=== PATIENT | female | born 1950 | race African-American/Black ===

== ENCOUNTER 2016-12-24 10:24 | Emergency (ER) | payer OTHER, MEDICARE, MEDICAID ==
--- NOTE | 2016-12-24 11:08 | ER Document Report ---
ED Fall - General Chief Complaint: Fall Stated Complaint: FALL,HEAD PAIN Information source: Patient Notes: A pleasant 66-year-old female who fell out of her wheelchair on a bus. She states the wheelchair was "not secured correctly". She states she hit the right side of her head. She denies any loss of consciousness. She denies pain to any other location including denying any pain to the neck, chest, ribs, back , abdomen, or extremities. TRAVEL OUTSIDE OF THE [place] IN LAST 30 DAYS: No - HPI Occurred: Just prior to arrival Where: Other - See above Context: Fell from sitting - See above Associated symptoms: denies: Lost consciousness, Dazed/confused Location of injury/pain: Other - See above Quality of pain: Achy Severity: Mild Pain Level: 1 Prehospital interventions: No: C-collar, Backboard - Related data Allergies/Adverse Reactions: Penicillins Allergy (Mild, Verified 07/02/16 20:42) Past Medical History - General Information source: Patient - Social History Smoking Status: Unknown if Ever Smoked Cigarette use (# per day): No Chew tobacco use (# tins/day): No Frequency of alcohol use: None Drug Abuse: None Family History: Arthritis, CAD, CVA, DM, Hyperlipidemia, Hypertension, Malignancy - Past Medical History Cardiac Medical History: Reports: Hx Hypercholesterolemia, Hx Hypertension Renal/ Medical History: Reports: Hx Renal Insufficiency Malignancy Medical History: Reports: Hx Brain Cancer Musculoskeltal Medical History: Reports Hx Arthritis, Reports Hx Gout Past Surgical History: Reports: Hx Appendectomy, Hx Neurologic Surgery - brain tumor removed - Immunizations Hx Diphtheria, Pertussis, Tetanus Vaccination: Yes Review of Systems - Review of Systems Constitutional: denies: Fever EENT: denies: Eye discharge, Nose discharge Cardiovascular: denies: Chest pain, Palpitations Respiratory: denies: Short of breath Gastrointestinal: denies: Vomiting Genitourinary: denies: Dysuria Musculoskeletal: denies: Leg swelling Skin: Other - no hives. denies: Rash Neurological/Psychological: Other - no slurred speech -: Yes All other systems reviewed and negative Physical Exam - Vital signs Vitals: Temp Pulse BP Pulse Ox 97.5 F 55 L 145/85 H 100 12/24/16 10:36 12/24/16 10:36 12/24/16 10:36 12/24/16 10:36 Notes: Reviewed vital signs and nursing note as charted by RN. CONSTITUTIONAL: Patient is a AAO 4.. Well-appearing; well-nourished HEAD: Normocephalic; atraumatic EYES: PERRL NECK: Supple without meningismus; non-tender CARD: Regular rate and rhythm; no murmurs, no clicks, no rubs, no gallops; symmetric distal pulses RESP: Normal chest excursion without splinting or tachypnea; breath sounds clear and equal bilaterally; no wheezes, no rhonchi, no rales ABD/GI: Normal bowel sounds; non-distended; soft, non-tender BACK: The back appears normal and is non-tender to palpation, there is no CVA tenderness EXT: Normal ROM in all joints; non-tender to palpation; no cyanosis, no effusions, no edema SKIN: Normal color for age and race; warm; dry; good turgor; capillary refill < 2 seconds; no acute lesions noted NEURO: CN II through XII are intact. Moves all extremities equally; Motor and sensory function intact PSYCH: The patient's mood and manner are appropriate. Grooming and personal hygiene are appropriate. Course - Re-evaluation Re-evalutation: 12/24/16 11:08 Given this very polite and oriented female with a fall from the seated position hitting the right side of her head, I will obtain a CT scan of the head. I do not believe other imaging or laboratory work is necessary at this time. 12/24/16 12:28 CT head as recorded. Still no focal neurological deficits. Patient will be discharged home with strict return precautions. - Vital Signs Vital signs: Temp Pulse Resp BP Pulse Ox 97.5 F 55 L 145/85 H 100 12/24/16 10:36 12/24/16 10:36 12/24/16 10:36 12/24/16 10:36 Discharge - Discharge Clinical Impression: Accidental fall Qualifiers: Encounter type: initial encounter Qualified Code(s): W19.XXXA - Unspecified fall, initial encounter Closed head injury Qualifiers: Encounter type: initial encounter Qualified Code(s): S09.90XA - Unspecified injury of head, initial encounter Condition: Good Disposition: HOME, SELF-CARE Additional Instructions: Come back immediately with any change in mental status, headache, weakness or numbness, fevers or vomiting, or any other acute problems.
[2016-12-24 13:00] VITALS: BP 158/73
== END 2016-12-24 12:53 | disposition home or self-care (01) ==
LOC: ER 10:24
DX: S09.90XA Unspecified injury of head, initial encounter (principal); R51 Headache; W05.0XXA Fall from non-moving wheelchair, initial encounter; Y92.811 Bus as the place of occurrence of the external cause; I10 Essential (primary) hypertension; E78.00 Pure hypercholesterolemia, unspecified; Z85.841 Personal history of malignant neoplasm of brain; Z88.0 Allergy status to penicillin
CPT/HCPCS: 70450; 99284

== ENCOUNTER → 2017-04-30 | Outpatient (CLI) | payer MEDICARE, MEDICAID ==
[2017-04-30 10:03] LABS: ABSOLUTE EOSINOPHILS # (AUTO) 0.3 10^3/uL (0.0-0.6); ABSOLUTE LYMPHOCYTES (AUTO) 2.7 10^3/uL (0.5-4.7); ABSOLUTE MONOCYTES (AUTO) 0.3 10^3/uL (0.1-1.4); ABSOLUTE NEUT (AUTO) 3.1 10^3/uL (1.7-8.2); BASOPHILS % (AUTO) 0.6 % (0-2); EOSINOPHILS % (AUTO) 4.1 % (0-6); HEMATOCRIT 22.7 % (36.0-47.0); HGB HCT DIFFERENCE 0.1; LYMPHOCYTES % (AUTO) 42.4 % (13-45); MEAN CORPUSCULAR HEMOGLOBIN 28.7 pg (27.0-33.4); MEAN CORPUSCULAR HGB CONC 33.3 g/dL (32.0-36.0); MEAN CORPUSCULAR VOLUME 86 fl (80-97); MONOCYTES % (AUTO) 4.4 % (3-13); RED BLOOD COUNT 2.65 10^6/uL (3.72-5.28); RED CELL DISTRIBUTION WIDTH 14.5 % (11.5-14.0); SEGMENTED NEUTROPHILS % (AUTO) 48.5 % (42-78); WHITE BLOOD COUNT 6.3 10^3/uL (4.0-10.5)
[2017-04-30 10:10] LABS: HEMOGLOBIN 7.6 g/dL (12.0-15.5)
== END ==
LOC: OD 09:18
PROVIDERS: ATTEND Internal Medicine
DX: D64.9 Anemia, unspecified (principal)
CPT/HCPCS: 36415; 82607; 82728; 83540; 83550; 85025

== ENCOUNTER → 2017-11-03 | Outpatient (CLI) | payer MEDICARE, MEDICAID ==
--- NOTE | 2017-11-03 10:50 | RADIOLOGY REPORT (SQ) ---
EXAM DESCRIPTION: CT ABD/PELVIS NO ORAL OR IV COMPLETED DATE/TIME: 11/03/2017 8:57 am REASON FOR STUDY: R10.32 LEFT LOWER QUADRANT PAIN R10.32 LEFT LOWER QUADRANT PAIN COMPARISON: None. TECHNIQUE: CT scan of the abdomen and pelvis performed without intravenous or oral contrast. Images reviewed with lung, soft tissue, and bone windows. Reconstructed coronal and sagittal MPR images revi ewed. All images stored on PACS. All CT scanners at this facility use dose modulation, iterative reconstruction, and/or weight based d osing when appropriate to reduce radiation dose to as low as reasonably achievable (ALARA). [facility]: Dose Right [facility]: CareDose [facility]: Dose Right [facility]: Teradose 4D [facility]: Smart [employer] RADIATION DOSE: CT Rad equipment meets quality standard of care and radiation dose reduction techniq ues were employed. CTDIvol: 4.3 - 5.7 mGy. DLP: 266 mGy-cm.mGy. LIMITATIONS: None. FINDINGS: LOWER CHEST: No significant findings. No nodules or infiltrates. NON-CONTRASTED LIVER, SPLEEN, ADRENALS: Evaluation limited by lack of IV contrast. No identified sign ificant masses. PANCREAS: No masses. No peripancreatic inflammatory changes. GALLBLADDER: Multiple small calcified gallstones are identified. No inflammatory changes to suggest c holecystitis. RIGHT KIDNEY AND URETER: No suspicious masses. Assessment limited by lack of IV contrast. No signif icant calcifications. No hydronephrosis or hydroureter. LEFT KIDNEY AND URETER: No suspicious masses. Assessment limited by lack of IV contrast. No signifi cant calcifications. No hydronephrosis or hydroureter. AORTA AND RETROPERITONEUM: No aneurysm. No retroperitoneal masses or adenopathy. BOWEL AND PERITONEAL CAVITY: No obvious masses or inflammatory changes. No free fluid. APPENDIX: Status post appendectomy PELVIS, BLADDER, AND ABDOMINAL WALL:No abnormal masses. No free fluid. Bladder normal. BONES: No significant findings. OTHER: No other significant finding. IMPRESSION: Multiple small calcified gallstones are identified. No other significant intra-abdomina l or pelvic abnormalities were identified. Other findings as noted above COMMENT: Quality ID # [id number]: Final reports with documentation of one or more dose reduction techniques (e.g., Automated exposure control, adjustment of the mA and/or kV according to patient size, use of iterative reconstruction technique) TECHNICAL DOCUMENTATION: JOB ID: [id number] [employer]- All Rights Reserved Reading location - IP/workstation name: [email or web address]
== END ==
LOC: RAD 09:06
PROVIDERS: ATTEND Internal Medicine
DX: R10.32 Left lower quadrant pain (principal)
CPT/HCPCS: 74176

== ENCOUNTER → 2017-11-30 | Outpatient (CLI) | payer MEDICARE, MEDICAID ==
--- NOTE | 2017-11-30 09:21 | WOMENS IMAGING REPORT ---
EXAM DESCRIPTION: BONE DENSITY HIP/SPINE COMPLETED DATE/TIME: 11/30/2017 8:59 am REASON FOR STUDY: AGE-RELATED OSTEOPROSIS; M81.0 M81.0 AGE-RELATED OSTEOPOROSIS W/O CURRENT PATHOLO GIRIVERA FRA COMPARISON: 05/23/2015 TECHNIQUE: Dual-Energy X-ray Absorptiometry (DEXA) of the AP Spine and Hip. LIMITATIONS: None. FINDINGS: LUMBAR SPINE: The bone mineral density (BMD) measured from L1-L4 in the AP projection correlates with a T-score of -2.5, which is osteoporosis as defined by the World Health Organization. -1.6% change since prior st udy. HIP: The bone mineral density (BMD) measured in the left hip correlates with a T-score of -2.3 in the femo ral neck, which is osteopenia as defined by the World Health Organization. -6.1% change since prior study. IMPRESSION: 1. LUMBAR SPINE: OSTEOPOROSIS. 2. HIP: OSTEOPENIA. COMMENT: The World Health Organization defines low BMD as follows: T-score: Normal: Greater than -1.0 Osteopenia: Between -1.0 and -2.5 Osteoporosis: Less than -2.5 without fractures Established osteoporosis: Less than -2.5 with fractures In general, you may wish to consider: Diagnosis Treatment Follow-up DEXA Normal BMD Prevention 2-3 years Osteopenia Prevention/Therapy 1-2 years Osteoporosis Therapy Yearly TECHNICAL DOCUMENTATION: JOB ID: [id number] [employer]- All Rights Reserved Reading location - IP/workstation name: [email or web address]
== END ==
LOC: WI 08:50
PROVIDERS: ATTEND Internal Medicine
DX: M81.0 Age-related osteoporosis without current pathological fracture (principal)
CPT/HCPCS: 77080

== ENCOUNTER → 2018-03-19 | Outpatient (CLI) | payer MEDICARE, MEDICAID ==
--- NOTE | 2018-03-19 18:08 | WOMENS IMAGING REPORT ---
EXAM DESCRIPTION: 3D SCREENING MAMMO BILAT COMPLETED DATE/TIME: 03/19/2018 10:17 am REASON FOR STUDY: BILATERAL SCREENING MAMMO 3D/Z12.31 Z12.31 ENCNTR SCREEN MAMMOGRAM FOR MALIGNANT NEOPLASM OF CARL COMPARISON: 2014, 2012 TECHNIQUE: Standard craniocaudal and mediolateral oblique views of each breast recorded using digita l acquisition and breast tomosynthesis. LIMITATIONS: None. FINDINGS: No masses, calcifications or architectural distortion. No areas of suspicion. Read with the assistance of CAD. .[facility] - R2 Cenova Version 1.3 .[facility] - R2 Cenova Version 1.3 .[facility] - R2 Cenova Version 2.4 .[facility] [place] R2 Cenova Version 2.4 .[facility] - R2 Yarn Winder Version 9.2 IMPRESSION: NORMAL MAMMOGRAM. BIRADS 1. BREAST DENSITY: b. There are scattered areas of fibroglandular density. BIRAD: 1 NEGATIVE RECOMMENDATION: ROUTINE SCREENING Please continue yearly bilateral screening mammography/tomosynthesis in February 2019 COMMENT: The patient has been notified of the results by letter per SA requirements. Additional no tification policies are in place for contacting patient with suspicious or incomplete findings. Quality ID #[id number]: The [employer] recommends an annual screening mammogram for women aged 40 years or over. This facility utilizes a reminder system to ensure that all patients receive reminder letters, and/or direct phone calls for appointments. This includes reminders for routine scr eening mammograms, diagnostic mammograms, or other Breast Imaging Interventions when appropriate. Th is patient will be placed in the appropriate reminder system. The [employer] (ACR) has developed recommendations for screening MRI of the breast s in certain patient populations, to be used in conjunction with mammography. Breast MRI surveillanc e may be appropriate for women with more than 20% lifetime risk of developing breast cancer as deter mined by genetic testing, significant family history of the disease, or history of mantle radiation f or Hodgkins Disease. ACR Practice Guidelines 2008. DBT Technology DBT is a type of tomographic mammography. With conventional mammography, overlapping breast tissue ma y make lesions difficult to detect, even with good compression. DBT uses an x-ray tube that rotates a round the breast, taking images at different angles. These images are then combined to create thin sl ices of the breast that the radiologist can view as a 3D reconstruction. The [employer] unit can perform full-field digital mammograms (2D imaging); or DBT (3D imaging); or both, in a combination mode that quickly performs both the mammogram and the tomosynthesis scan while the breast is still compressed. PQRS 6045F: Fluoroscopic imaging is not utilized for breast tomosynthesis. TECHNICAL DOCUMENTATION: FINDING NUMBER: (1) ASSESSMENT: (1) JOB ID: [id number] [employer]- All Rights Reserved Reading location - IP/workstation name: [email or web address]
== END ==
LOC: WI 09:55
PROVIDERS: ATTEND Internal Medicine
DX: Z12.31 Encounter for screening mammogram for malignant neoplasm of breast (principal)
CPT/HCPCS: 77063; 77067

== ENCOUNTER 2019-04-15 13:46 | Inpatient (IN) | payer MEDICARE, MEDICAID ==
[2019-04-15] MEDS ORDERED: NORMAL SALINE 1000 ML 1,000 ML IV ONE ×2 (14:41→16:17)
[2019-04-15 15:16] LABS: ABSOLUTE BASOPHILS # (AUTO) 0.1 10^3/uL (0.0-0.2); ABSOLUTE EOSINOPHILS # (AUTO) 0.4 10^3/uL (0.0-0.6); ABSOLUTE MONOCYTES (AUTO) 0.8 10^3/uL (0.1-1.4); ABSOLUTE NEUT (AUTO) 3.9 10^3/uL (1.7-8.2); EOSINOPHILS % (AUTO) 5.7 % (0-6); HEMATOCRIT 33.6 % (36.0-47.0); HEMOGLOBIN 11.4 g/dL (12.0-15.5); LYMPHOCYTES % (AUTO) 28.2 % (13-45); MEAN CORPUSCULAR HEMOGLOBIN 28.1 pg (27.0-33.4); MEAN CORPUSCULAR HGB CONC 33.9 g/dL (32.0-36.0); MEAN CORPUSCULAR VOLUME 83 fl (80-97); MONOCYTES % (AUTO) 10.8 % (3-13); PLATELET COUNT 303 10^3/uL (150-450); RED BLOOD COUNT 4.05 10^6/uL (3.72-5.28); RED CELL DISTRIBUTION WIDTH 14.8 % (11.5-14.0); SEGMENTED NEUTROPHILS % (AUTO) 54.3 % (42-78); TOTAL CELLS COUNTED % (AUTO) 100 %; WHITE BLOOD COUNT 7.1 10^3/uL (4.0-10.5)
--- NOTE | 2019-04-15 15:28 | RADIOLOGY REPORT (SQ) ---
EXAM DESCRIPTION: KUB/ABDOMEN (SINGLE VIEW) COMPLETED DATE/TIME: 04/15/2019 3:17 pm REASON FOR STUDY: vomiting COMPARISON: None. NUMBER OF VIEWS: One view. TECHNIQUE: Supine radiographic image of the abdomen acquired. LIMITATIONS: None. FINDINGS: BOWEL GAS PATTERN: Normal bowel gas pattern. No dilated loops. CALCIFICATIONS: No suspicious calcifications. SOFT TISSUES: No gross mass or suggestion of organomegaly. HARDWARE: None in the abdomen. BONES: No acute fracture. No worrisome bone lesions. OTHER: No other significant finding. IMPRESSION: NO RADIOGRAPHIC EVIDENCE FOR ACUTE ABDOMINAL DISEASE. TECHNICAL DOCUMENTATION: JOB ID: [id number] [employer]- All Rights Reserved Reading location - IP/workstation name: [email or web address]
--- NOTE | 2019-04-15 15:29 | RADIOLOGY REPORT (SQ) ---
EXAM DESCRIPTION: CHEST SINGLE VIEW COMPLETED DATE/TIME: 04/15/2019 3:17 pm REASON FOR STUDY: hypotension COMPARISON: 10/13/2014 EXAM PARAMETERS: NUMBER OF VIEWS: One view. TECHNIQUE: Single frontal radiographic view of the chest acquired. RADIATION DOSE: NA LIMITATIONS: None. FINDINGS: LUNGS AND PLEURA: The lungs are hyperexpanded. There is no infiltrate, effusion, or mass. MEDIASTINUM AND HILAR STRUCTURES: No masses. Contour normal. HEART AND VASCULAR STRUCTURES: Heart normal in size. Normal vasculature. BONES: No acute findings. HARDWARE: None in the chest. OTHER: No other significant finding. IMPRESSION: Mild chronic lung changes with no acute cardiopulmonary findings. TECHNICAL DOCUMENTATION: JOB ID: [id number] [employer] All Rights Reserved Reading location - IP/workstation name: [email or web address]
[2019-04-15 15:36] LABS: ALBUMIN 4.6 g/dL (3.5-5.0); ALKALINE PHOSPHATASE 106 U/L (38-126); ANION GAP 16 (5-19); ASPARTATE AMINO TRANSFERASE 42 U/L (14-36); BILIRUBIN,DIRECT 0.4 mg/dL (0.0-0.4); BILIRUBIN,TOTAL 0.5 mg/dL (0.2-1.3); BLOOD UREA NITROGEN 35 mg/dL (7-20); CARBON DIOXIDE 20 mmol/L (22-30); CHLORIDE 101 mmol/L (98-107); CREATINE KINASE 426 U/L (30-135); GLUCOSE 97 mg/dL (75-110); POTASSIUM 4.1 mmol/L (3.6-5.0); TOTAL PROTEIN 8.7 g/dL (6.3-8.2)
[2019-04-15] MEDS ORDERED: DRONABINOL 2.5 MG CAPSULE PO ONE (15:39)
[2019-04-15 15:50] LABS: CREATINE KINASE MB 2.72 ng/mL (<4.55)
[2019-04-15 15:54] LABS: TROPONIN I 0.159 ng/mL
[2019-04-15] MEDS ORDERED: IPRATROPIUM/ALBUTEROL 0.5-2.5 MG/3 ML AMPUL NEB PRN (18:25)
[2019-04-15] MEDS ORDERED: ACETAMINOPHEN 325 MG TABLET PO PRN (18:25)
[2019-04-15 18:52] LABS: INTERNATIONAL RATION (INR) 1.07; PROTHROMBIN TIME 13.9 SEC (11.4-15.4)
[2019-04-15 18:53] LABS: PARTIAL THROMBOPLASTIN TIME 34.8 SEC (23.5-35.8)
--- NOTE | 2019-04-15 19:41 | RADIOLOGY REPORT (SQ) ---
EXAM DESCRIPTION: U/S RETROPERITON (RENAL/AORTA) COMPLETED DATE/TIME: 04/15/2019 6:57 pm REASON FOR STUDY: acute kidney failure COMPARISON: 07/25/2013 TECHNIQUE: Dynamic and static grayscale images acquired of the kidneys and bladder and recorded on P ACS. Additional selected color Doppler and spectral images recorded. LIMITATIONS: None. FINDINGS: RIGHT KIDNEY: Atrophic, 6.8 cm length. No solid or suspicious masses. No hydronephrosis. No calcifications. LEFT KIDNEY: 9.2 cm length. No solid or suspicious masses. No hydronephrosis. No calcifications. BLADDER: No masses identified. OTHER FINDINGS: No other significant finding. IMPRESSION: No hydronephrosis. TECHNICAL DOCUMENTATION: JOB ID: [id number] [place]-72 2010 [employer]- All Rights Reserved Reading location - IP/workstation name: [email or web address]
[2019-04-15 19:42] LABS: THYROID STIMULATING HORMONE < 0.01 uIU/mL (0.47-4.68)
[2019-04-15] MEDS: HEPARIN SOD (PORCINE) 5,000 UNIT/ML 1 ML VIAL SUBCUT SCH (20:45)
[2019-04-15 20:46] LABS: CREATINE KINASE MB 2.64 ng/mL (<4.55); TROPONIN I 0.112 ng/mL
[2019-04-15] MEDS: NORMAL SALINE 1000 ML 1,000 ML IV PRN (22:22)
[2019-04-16 03:08] LABS: CREATINE KINASE MB 2.71 ng/mL (<4.55); TROPONIN I 0.078 ng/mL
[2019-04-16] MEDS: HEPARIN SOD (PORCINE) 5,000 UNIT/ML 1 ML VIAL SUBCUT SCH ×3 (05:48→21:27)
[2019-04-16 06:59] LABS: APPEARANCE,URINE CLEAR; BILIRUBIN,URINE NEGATIVE (NEGATIVE); COLOR,URINE STRAW; GLUCOSE, URINE NEGATIVE (NEGATIVE); KETONES,URINE NEGATIVE (NEGATIVE); LEUKOCYTE ESTERASE,URINE NEGATIVE (NEGATIVE); NITRITE,URINE NEGATIVE (NEGATIVE); PROTEIN,URINE NEGATIVE (NEGATIVE); URINE SPECIFIC GRAVITY 1.004; UROBILINOGEN,URINE NEGATIVE mg/dL (<2.0)
[2019-04-16 07:13] LABS: URINE AMPHETAMINES SCREEN NEGATIVE; URINE BARBITURATES SCREEN NEGATIVE; URINE BENZODIAZEPINES SCREEN NEGATIVE; URINE COCAINE SCREEN NEGATIVE; URINE METHADONE SCREEN NEGATIVE; URINE PHENCYCLIDINE SCREEN NEGATIVE
[2019-04-16 07:20] LABS: URINE MARIJUANA (THC) SCREEN UNCONFIRMED POSITIVE
[2019-04-16 08:10] LABS: ABSOLUTE RETICS # 0.034 10^6/uL (0.028-0.122); MEAN CORPUSCULAR HEMOGLOBIN 27.9 pg (27.0-33.4); MEAN CORPUSCULAR VOLUME 82 fl (80-97); PLATELET COUNT 251 10^3/uL (150-450); RED BLOOD COUNT 3.17 10^6/uL (3.72-5.28); RED CELL DISTRIBUTION WIDTH 15.1 % (11.5-14.0); RETICULOCYTE COUNT (AUTO) 1.06 % (0.66-2.85)
[2019-04-16 08:17] LABS: ALBUMIN 3.5 g/dL (3.5-5.0); ALKALINE PHOSPHATASE 78 U/L (38-126); ANION GAP 10 (5-19); ASPARTATE AMINO TRANSFERASE 30 U/L (14-36); BILIRUBIN,DIRECT 0.3 mg/dL (0.0-0.4); BILIRUBIN,TOTAL 0.4 mg/dL (0.2-1.3); BLOOD UREA NITROGEN 30 mg/dL (7-20); CALCIUM 8.1 mg/dL (8.4-10.2); CARBON DIOXIDE 19 mmol/L (22-30); CHLORIDE 111 mmol/L (98-107); CHOLESTEROL 131.96 mg/dL (0-200); CREATINE KINASE 402 U/L (30-135); GLUCOSE 75 mg/dL (75-110); IRON(TIBC) 172.2 ug/dL (37-170); POTASSIUM 3.6 mmol/L (3.6-5.0); TOTAL PROTEIN 6.8 g/dL (6.3-8.2); TRIGLYCERIDES 133 mg/dL (<150)
[2019-04-16 08:19] LABS: HEMOGLOBIN 8.8 g/dL (12.0-15.5)
[2019-04-16 08:28] LABS: DIRECT LDL 87 mg/dL (<100)
[2019-04-16 08:29] LABS: CREATINE KINASE MB 2.74 ng/mL (<4.55); TROPONIN I 0.076 ng/mL
[2019-04-16 08:49] LABS: ABSOLUTE LYMPHOCYTES# (MANUAL) 2.3 10^3/uL (0.5-4.7); ABSOLUTE MONOCYTES # (MANUAL) 0.2 10^3/uL (0.1-1.4); BASOPHILS % (MANUAL) 0 % (0-2); EOSINOPHILS % (MANUAL) 8 % (0-6); LYMPHOCYTES % (MANUAL) 39 % (13-45); MONOCYTES % (MANUAL) 3 % (3-13); SEGMENTED NEUTROPHILS % (MAN) 50 % (42-78); TOTAL CELLS COUNTED 100
[2019-04-16 08:50] LABS: ANISOCYTOSIS SLIGHT; OVALOCYTES 1+; PLATELET COMMENT ADEQUATE; POIKILOCYTOSIS 1+
[2019-04-16 09:57] LABS: FOLATE 7.32 ng/mL (>2.76)
--- NOTE | 2019-04-16 10:33 | PDOC H&P ---
History of Present Illness Admission Date/PCP: 04/15/19 18:19 JUAN F MELVIN MD History of Present Illness: MARINA VELA is a 68 year old female, she was brought to the emergency room by her nephew for evaluation of generalized body weakness, decreased intake, dehydration. She has a history of underlying chronic kidney disease, stage III, she has anemia, she was evaluated in the office for the anemia the iron indices, B12, reticulocyte count came back normal, I felt she needed a bone marrow biopsy. I ordered bone marrow biopsy outpatient but this was not done by the interventional radiologist, this suggests that patient should be referred to a digital media planner. She was referred to the digital media planner, she went through another set of iron studies she was found to be iron deficient from their evaluation I did not demonstrate iron deficiency from the evaluation done in the office. She said she was given iron infusion, since she received iron infusion she became anorexic, she has no appetite and she has not been eating or drinking since Thursday of last week. The nephew was concerned she brought out of the ER for evaluation, the serum creatinine that was done in the ER was 4.68, her baseline creatinine is about 1.5.. Kidney ultrasound was done there was no hydronep hrosis it demonstrated atrophic right kidney measures 6.8 cm, the left kidney measures 9.2 cm there was no hydronephrosis no mass no suspicious lesions. She was also found to have elevated serum troponin but there is no EKG changes, the BNP was elevated, the worsening azotemia is most likely prerenal and not necessarily from worsening kidney function. There is also evidence of secondary hyperparathyroidism due to kidney disease. The anemia is probably anemia of chronic kidney disease and not necessarily iron deficiency anemia Past Medical History Cardiac Medical History: Reports: Hyperlipidema, Hypertension Pulmonary Medical History: Reports: Chronic Obstructive Pulmonary Disease (COPD) Endocrine Medical History: Reports: Other - Osteoporosis Renal/ Medical History: Reports: Chronic Kidney Disease Musculoskeltal Medical History: Reports: Arthritis, Gout Psychiatric Medical History: Reports: Depression Past Surgical History Past Surgical History: Reports: Appendectomy Social History Smoking Status: Current Every Day Smoker Cigarettes Packs Per Day: 0.2 Cigars Per Day: 0 Pipes Per Day: 0 Number of Years Smokin Last Time Smoked: 04/14/19 Frequency of Alcohol Use: None Hx Recreational Drug Use: No Drugs: None Hx Prescription Drug Abuse: No - Advance Directive Resuscitation Status: Full Code Family History Family History: Arthritis, CAD, CVA, DM, Hyperlipidemia, Hypertension, Malignancy Parental Family History Reviewed: Yes Children Family History Reviewed: Yes Sibling(s) Family History Reviewed.: Yes Medication/Allergy Home Medications: Aspirin [Aspirin 81 mg Chewable Tablet] 81 mg PO DAILY #30 03/24/13 Calcium Carb, Citrate/Vit D3 [Calcium + D3 ER Tablet] 1 tab PO BID 10/13/14 Losartan Potassium 100 mg PO DAILY 10/13/14 Levothyroxine Sodium [Synthroid 50 Mcg Tablet] 50 mcg PO DAILY 04/15/19 Allergies/Adverse Reactions: Penicillins Allergy (Mild, Verified 04/30/17 10:48) Review of Systems Constitutional: PRESENT: anorexia, fatigue Eyes: ABSENT: visual disturbances Ears: ABSENT: hearing changes Cardiovascular: ABSENT: chest pain, dyspnea on exertion, edema, orthropnea, palpitations Respiratory: ABSENT: cough, hemoptysis Gastrointestinal: ABSENT: abdominal pain, constipation, diarrhea, hematemesis, hematochezia, nausea, vomiting Genitourinary: ABSENT: dysuria, hematuria Musculoskeletal: ABSENT: joint swelling Integumentary: ABSENT: rash, wounds Neurological: ABSENT: abnormal gait, abnormal speech, confusion, dizziness, focal weakness, syncope Psychiatric: ABSENT: anxiety, depression, homidical ideation, suicidal ideation Endocrine: ABSENT: cold intolerance, heat intolerance, menstrual abnormalities, polydipsia, polyuria Hematologic/Lymphatic: ABSENT: easy bleeding, easy bruising, lymphadenopathy Physical Exam Vital Signs: Temp Pulse Resp BP Pulse Ox 98.2 F 63 14 127/59 H 100 04/16/19 07:23 04/16/19 07:23 04/16/19 07:23 04/16/19 07:23 04/16/19 07:23 Intake & Output 04/15/19 04/16/19 04/17/19 06:59 06:59 06:59 Intake Total 2300 Output Total 750 200 Balance 1550 -200 Weight 59.6 kg General appearance: PRESENT: no acute distress, well-developed, well-nourished Head exam: PRESENT: atraumatic, normocephalic Eye exam: PRESENT: conjunctiva pink, EOMI, PERRLA Ear exam: PRESENT: normal external ear exam Mouth exam: PRESENT: moist, tongue midline Neck exam: PRESENT: full ROM Respiratory exam: PRESENT: clear to auscultation sharon Cardiovascular exam: PRESENT: RRR, +S1, +S2 Vascular exam: PRESENT: normal capillary refill GI/Abdominal exam: PRESENT: normal bowel sounds, soft Rectal exam: PRESENT: deferred Neurological exam: PRESENT: alert, CN II-XII grossly intact Psychiatric exam: PRESENT: appropriate affect, normal mood Skin exam: PRESENT: dry, intact, warm Results Laboratory Results: 04/16/19 07:53 04/16/19 07:53 04/15/19 04/15/19 04/15/19 15:00 15:00 15:00 WBC 7.1 RBC 4.05 Hgb 11.4 L Hct 33.6 L MCV 83 MCH 28.1 MCHC 33.9 RDW 14.8 H Plt Count 303 Seg Neutrophils % 54.3 Lymphocytes % 28.2 Monocytes % 10.8 Eosinophils % 5.7 Basophils % 1.0 Absolute Neutrophils 3.9 Absolute Lymphocytes 2.0 Absolute Monocytes 0.8 Absolute Eosinophils 0.4 Absolute Basophils 0.1 Retic Count (auto) Absolute Retic Sodium 137.0 Potassium 4.1 Chloride 101 Carbon Dioxide 20 L Anion Gap 16 BUN 35 H Creatinine 4.68 H Est GFR ( Amer) 11 L Est GFR (Non-Af Amer) 9 L Glucose 97 Lactic Acid 1.5 Calcium 10.0 Magnesium Iron TIBC % Saturation Ferritin Total Bilirubin 0.5 AST 42 H Alkaline Phosphatase 106 Ammonia Total Protein 8.7 H Albumin 4.6 Triglycerides Cholesterol LDL Cholesterol Direct VLDL Cholesterol HDL Cholesterol Amylase Lipase Vitamin B12 Folate TSH Free T4 PTH Intact Urine Color Urine Appearance Urine pH Ur Specific [place] Urine Protein Urine Glucose (UA) Urine Ketones Urine Blood Urine Nitrite Ur Leukocyte Esterase Urine WBC (Auto) Urine RBC (Auto) 04/15/19 04/15/19 04/15/19 15:00 15:00 19:44 WBC RBC Hgb Hct MCV MCH MCHC RDW Plt Count Seg Neutrophils % Lymphocytes % Monocytes % Eosinophils % Basophils % Absolute Neutrophils Absolute Lymphocytes Absolute Monocytes Absolute Eosinophils Absolute Basophils Retic Count (auto) Absolute Retic Sodium Potassium Chloride Carbon Dioxide Anion Gap BUN Creatinine Est GFR ( Amer) Est GFR (Non-Af Amer) Glucose Lactic Acid Calcium Magnesium 2.4 H Iron TIBC % Saturation Ferritin Total Bilirubin AST Alkaline Phosphatase Ammonia 15.5 Total Protein Albumin Triglycerides Cholesterol LDL Cholesterol Direct VLDL Cholesterol HDL Cholesterol Amylase 156 H Lipase 342.5 H Vitamin B12 Folate TSH < 0.01 L Free T4 1.30 PTH Intact Urine Color Urine Appearance Urine pH Ur Specific [place] Urine Protein Urine Glucose (UA) Urine Ketones Urine Blood Urine Nitrite Ur Leukocyte Esterase Urine WBC (Auto) Urine RBC (Auto) 04/16/19 04/16/19 04/16/19 06:08 07:53 07:53 WBC 6.0 RBC 3.17 L Hgb 8.8 L D Hct 26.0 L MCV 82 MCH 27.9 MCHC 34.0 RDW 15.1 H Plt Count 251 Seg Neutrophils % Not Reportable Lymphocytes % Not Reportable Monocytes % Not Reportable Eosinophils % Not Reportable Basophils % Not Reportable Absolute Neutrophils Not Reportable Absolute Lymphocytes Not Reportable Absolute Monocytes Not Reportable Absolute Eosinophils Not Reportable Absolute Basophils Not Reportable Retic Count (auto) Absolute Retic Sodium 140.2 Potassium 3.6 Chloride 111 H Carbon Dioxide 19 L Anion Gap 10 BUN 30 H Creatinine 2.30 H Est GFR ( Amer) 25 L Est GFR (Non-Af Amer) 21 L Glucose 75 Lactic Acid Calcium 8.1 L Magnesium Iron TIBC % Saturation Ferritin Total Bilirubin 0.4 AST 30 Alkaline Phosphatase 78 Ammonia Total Protein 6.8 Albumin 3.5 Triglycerides 133 Cholesterol 131.96 LDL Cholesterol Direct 87 VLDL Cholesterol 27.0 HDL Cholesterol 25 L Amylase Lipase Vitamin B12 Folate TSH Free T4 PTH Intact Urine Color STRAW Urine Appearance CLEAR Urine pH 6.0 Ur Specific [place] 1.004 Urine Protein NEGATIVE Urine Glucose (UA) NEGATIVE Urine Ketones NEGATIVE Urine Blood MODERATE H Urine Nitrite NEGATIVE Ur Leukocyte Esterase NEGATIVE Urine WBC (Auto) 1 Urine RBC (Auto) 1 04/16/19 04/16/19 04/16/19 07:53 07:53 07:53 WBC RBC Hgb Hct MCV MCH MCHC RDW Plt Count Seg Neutrophils % Lymphocytes % Monocytes % Eosinophils % Basophils % Absolute Neutrophils Absolute Lymphocytes Absolute Monocytes Absolute Eosinophils Absolute Basophils Retic Count (auto) 1.06 Absolute Retic 0.034 Sodium Potassium Chloride Carbon Dioxide Anion Gap BUN Creatinine Est GFR ( Amer) Est GFR (Non-Af Amer) Glucose Lactic Acid Calcium Magnesium Iron 172.2 H TIBC 220 L % Saturation 78 Ferritin 1120.00 H Total Bilirubin AST Alkaline Phosphatase Ammonia Total Protein Albumin Triglycerides Cholesterol LDL Cholesterol Direct VLDL Cholesterol HDL Cholesterol Amylase Lipase Vitamin B12 370.0 Folate 7.32 TSH Free T4 PTH Intact 304.5 H Urine Color Urine Appearance Urine pH Ur Specific [place] Urine Protein Urine Glucose (UA) Urine Ketones Urine Blood Urine Nitrite Ur Leukocyte Esterase Urine WBC (Auto) Urine RBC (Auto) 04/15/19 04/15/19 04/15/19 15:00 15:00 15:00 Creatine Kinase 426 H CK-MB (CK-2) 2.72 Troponin I 0.159 NT-Pro-B Natriuret Pep 8120 H 04/15/19 04/15/19 04/16/19 20:05 20:05 02:17 Creatine Kinase 344 H 363 H CK-MB (CK-2) 2.64 Troponin I 0.112 NT-Pro-B Natriuret Pep 04/16/19 04/16/19 04/16/19 02:17 07:53 07:53 Creatine Kinase 402 H CK-MB (CK-2) 2.71 2.74 Troponin I 0.078 0.076 NT-Pro-B Natriuret Pep Impressions: Chest X-Ray 04/15/19 00:00 IMPRESSION: Mild chronic lung changes with no acute cardiopulmonary findings. Renal Ultrasound 04/15/19 00:00 IMPRESSION: No hydronephrosis. KUB X-Ray 04/15/19 14:41 IMPRESSION: NO RADIOGRAPHIC EVIDENCE FOR ACUTE ABDOMINAL DISEASE. Assessment & Plan - Diagnosis (1) LAURO (acute kidney injury) Is this a current diagnosis for this admission?: Yes Plan: She has acute kidney injury most likely prerenal, this is superimposed on a pre- existing kidney disease, the kidney ultrasound demonstrated atrophic right kidney. The patient is dehydrated, she has not been eating not drinking for the last week because she has no appetite which she attributed to the iron infusion that she received outpatient. (2) Secondary hyperparathyroidism (of renal origin) Is this a current diagnosis for this admission?: Yes Plan: , Check phosphorus ,start calcitriol (3) Weight loss Is this a current diagnosis for this admission?: Yes Plan: I am concerned about the weight loss especially with tobacco use, order CT scan of the abdomen and pelvis chest and head without contrast (4) Elevated troponin Is this a current diagnosis for this admission?: Yes Plan: This is probably related to the acute kidney injury not necessarily reflection of acute AR
--- NOTE | 2019-04-16 10:34 | EKG REPORT ---
SEVERITY:- BORDERLINE ECG - SINUS RHYTHM BORDERLINE PROLONGED QT INTERVAL : Confirmed by: Robert Sears 16-Apr-2019 10:33:56
--- NOTE | 2019-04-16 10:34 | EKG REPORT ---
SEVERITY:- ABNORMAL ECG - SINUS RHYTHM PROBABLE LEFT ATRIAL ABNORMALITY NONSPECIFIC T ABNORMALITIES, ANT-LAT LEADS BORDERLINE PROLONGED QT INTERVAL : Confirmed by: Robert Sears 16-Apr-2019 10:34:06
--- NOTE | 2019-04-16 10:42 | PDOC PROGRESS REPORT ---
Subjective Progress Note for:: 04/16/19 Subjective:: Patient was seen by the bedside, she feels somewhat better since admission, the serum creatinine is improved from 4 yesterday to 2 today suggesting a prerenal component. The hemoglobin was 11 yesterday is 8 today, the iron indices demonstrated elevated ferritin. She has anemia of chronic kidney disease. As I indicated I am concerned about the weight loss, she has not had colonoscopy. Reason For Visit: ACUTE KIDNEY INJURY, ELEVATED SERUM TROPONIN Physical Exam Vital Signs: Temp Pulse Resp BP Pulse Ox 98.2 F 63 14 127/59 H 100 04/16/19 07:23 04/16/19 07:23 04/16/19 07:23 04/16/19 07:23 04/16/19 07:23 Intake & Output 04/15/19 04/16/19 04/17/19 06:59 06:59 06:59 Intake Total 2300 Output Total 750 200 Balance 1550 -200 Weight 59.6 kg General appearance: PRESENT: no acute distress Eye exam: PRESENT: PERRLA Respiratory exam: PRESENT: clear to auscultation sharon Cardiovascular exam: PRESENT: +S1, +S2 GI/Abdominal exam: PRESENT: soft Neurological exam: PRESENT: alert Results Laboratory Results: 04/16/19 07:53 04/16/19 07:53 04/15/19 04/15/19 04/15/19 15:00 15:00 15:00 WBC 7.1 RBC 4.05 Hgb 11.4 L Hct 33.6 L MCV 83 MCH 28.1 MCHC 33.9 RDW 14.8 H Plt Count 303 Seg Neutrophils % 54.3 Lymphocytes % 28.2 Monocytes % 10.8 Eosinophils % 5.7 Basophils % 1.0 Absolute Neutrophils 3.9 Absolute Lymphocytes 2.0 Absolute Monocytes 0.8 Absolute Eosinophils 0.4 Absolute Basophils 0.1 Retic Count (auto) Absolute Retic Sodium 137.0 Potassium 4.1 Chloride 101 Carbon Dioxide 20 L Anion Gap 16 BUN 35 H Creatinine 4.68 H Est GFR ( Amer) 11 L Est GFR (Non-Af Amer) 9 L Glucose 97 Lactic Acid 1.5 Calcium 10.0 Magnesium Iron TIBC % Saturation Ferritin Total Bilirubin 0.5 AST 42 H Alkaline Phosphatase 106 Ammonia Total Protein 8.7 H Albumin 4.6 Triglycerides Cholesterol LDL Cholesterol Direct VLDL Cholesterol HDL Cholesterol Amylase Lipase Vitamin B12 Folate TSH Free T4 PTH Intact Urine Color Urine Appearance Urine pH Ur Specific [place] Urine Protein Urine Glucose (UA) Urine Ketones Urine Blood Urine Nitrite Ur Leukocyte Esterase Urine WBC (Auto) Urine RBC (Auto) 04/15/19 04/15/19 04/15/19 15:00 15:00 19:44 WBC RBC Hgb Hct MCV MCH MCHC RDW Plt Count Seg Neutrophils % Lymphocytes % Monocytes % Eosinophils % Basophils % Absolute Neutrophils Absolute Lymphocytes Absolute Monocytes Absolute Eosinophils Absolute Basophils Retic Count (auto) Absolute Retic Sodium Potassium Chloride Carbon Dioxide Anion Gap BUN Creatinine Est GFR ( Amer) Est GFR (Non-Af Amer) Glucose Lactic Acid Calcium Magnesium 2.4 H Iron TIBC % Saturation Ferritin Total Bilirubin AST Alkaline Phosphatase Ammonia 15.5 Total Protein Albumin Triglycerides Cholesterol LDL Cholesterol Direct VLDL Cholesterol HDL Cholesterol Amylase 156 H Lipase 342.5 H Vitamin B12 Folate TSH < 0.01 L Free T4 1.30 PTH Intact Urine Color Urine Appearance Urine pH Ur Specific [place] Urine Protein Urine Glucose (UA) Urine Ketones Urine Blood Urine Nitrite Ur Leukocyte Esterase Urine WBC (Auto) Urine RBC (Auto) 04/16/19 04/16/19 04/16/19 06:08 07:53 07:53 WBC 6.0 RBC 3.17 L Hgb 8.8 L D Hct 26.0 L MCV 82 MCH 27.9 MCHC 34.0 RDW 15.1 H Plt Count 251 Seg Neutrophils % Not Reportable Lymphocytes % Not Reportable Monocytes % Not Reportable Eosinophils % Not Reportable Basophils % Not Reportable Absolute Neutrophils Not Reportable Absolute Lymphocytes Not Reportable Absolute Monocytes Not Reportable Absolute Eosinophils Not Reportable Absolute Basophils Not Reportable Retic Count (auto) Absolute Retic Sodium 140.2 Potassium 3.6 Chloride 111 H Carbon Dioxide 19 L Anion Gap 10 BUN 30 H Creatinine 2.30 H Est GFR ( Amer) 25 L Est GFR (Non-Af Amer) 21 L Glucose 75 Lactic Acid Calcium 8.1 L Magnesium Iron TIBC % Saturation Ferritin Total Bilirubin 0.4 AST 30 Alkaline Phosphatase 78 Ammonia Total Protein 6.8 Albumin 3.5 Triglycerides 133 Cholesterol 131.96 LDL Cholesterol Direct 87 VLDL Cholesterol 27.0 HDL Cholesterol 25 L Amylase Lipase Vitamin B12 Folate TSH Free T4 PTH Intact Urine Color STRAW Urine Appearance CLEAR Urine pH 6.0 Ur Specific [place] 1.004 Urine Protein NEGATIVE Urine Glucose (UA) NEGATIVE Urine Ketones NEGATIVE Urine Blood MODERATE H Urine Nitrite NEGATIVE Ur Leukocyte Esterase NEGATIVE Urine WBC (Auto) 1 Urine RBC (Auto) 1 04/16/19 04/16/19 04/16/19 07:53 07:53 07:53 WBC RBC Hgb Hct MCV MCH MCHC RDW Plt Count Seg Neutrophils % Lymphocytes % Monocytes % Eosinophils % Basophils % Absolute Neutrophils Absolute Lymphocytes Absolute Monocytes Absolute Eosinophils Absolute Basophils Retic Count (auto) 1.06 Absolute Retic 0.034 Sodium Potassium Chloride Carbon Dioxide Anion Gap BUN Creatinine Est GFR ( Amer) Est GFR (Non-Af Amer) Glucose Lactic Acid Calcium Magnesium Iron 172.2 H TIBC 220 L % Saturation 78 Ferritin 1120.00 H Total Bilirubin AST Alkaline Phosphatase Ammonia Total Protein Albumin Triglycerides Cholesterol LDL Cholesterol Direct VLDL Cholesterol HDL Cholesterol Amylase Lipase Vitamin B12 370.0 Folate 7.32 TSH Free T4 PTH Intact 304.5 H Urine Color Urine Appearance Urine pH Ur Specific [place] Urine Protein Urine Glucose (UA) Urine Ketones Urine Blood Urine Nitrite Ur Leukocyte Esterase Urine WBC (Auto) Urine RBC (Auto) 04/15/19 04/15/19 04/15/19 15:00 15:00 15:00 Creatine Kinase 426 H CK-MB (CK-2) 2.72 Troponin I 0.159 NT-Pro-B Natriuret Pep 8120 H 04/15/19 04/15/19 04/16/19 20:05 20:05 02:17 Creatine Kinase 344 H 363 H CK-MB (CK-2) 2.64 Troponin I 0.112 NT-Pro-B Natriuret Pep 04/16/19 04/16/19 04/16/19 02:17 07:53 07:53 Creatine Kinase 402 H CK-MB (CK-2) 2.71 2.74 Troponin I 0.078 0.076 NT-Pro-B Natriuret Pep Impressions: Chest X-Ray 04/15/19 00:00 IMPRESSION: Mild chronic lung changes with no acute cardiopulmonary findings. Renal Ultrasound 04/15/19 00:00 IMPRESSION: No hydronephrosis. KUB X-Ray 04/15/19 14:41 IMPRESSION: NO RADIOGRAPHIC EVIDENCE FOR ACUTE ABDOMINAL DISEASE. Assessment & Plan - Diagnosis (1) LAURO (acute kidney injury) Is this a current diagnosis for this admission?: Yes Plan: Continue hydration (2) Secondary hyperparathyroidism (of renal origin) Is this a current diagnosis for this admission?: Yes (3) Weight loss Is this a current diagnosis for this admission?: Yes Plan: Surgical consultation for colonoscopy (4) Elevated troponin Is this a current diagnosis for this admission?: Yes (5) Anemia in chronic kidney disease Qualifiers: Chronic kidney disease stage: stage 3 (moderate) Qualified Code(s): N18.3 - Chronic kidney disease, stage 3 (moderate); D63.1 - Anemia in chronic kidney disease Is this a current diagnosis for this admission?: Yes Plan: administer Procrit
[2019-04-16] MEDS ORDERED: EPOETIN ALFA INJ 40000 UNIT/1 ML (RENAL) SUBCUT ONE (10:43)
[2019-04-16] MEDS: CALCITRIOL 0.25 MCG CAPSULE PO SCH (11:14)
[2019-04-16] MEDS ORDERED: EPOETIN ALFA-EPBX 40,000 UNIT/ML VIAL (NON-ESRD) SUBCUT ONE (12:00)
[2019-04-16] MEDS ORDERED: EPOETIN ALFA-EPBX 20,000 UNITS (NON-ESRD) in SYRINGE SUBCUT ONE (12:00)
[2019-04-16] MEDS: NORMAL SALINE 1000 ML 1,000 ML IV PRN ×2 (12:30→23:00)
--- NOTE | 2019-04-16 13:43 | RADIOLOGY REPORT (SQ) ---
EXAM DESCRIPTION: CT HEAD WITHOUT COMPLETED DATE/TIME: 04/16/2019 12:17 pm REASON FOR STUDY: unexplained weight loss COMPARISON: 12/24/2016 TECHNIQUE: Axial images acquired through the brain without intravenous contrast. Images reviewed wit h bone, brain and subdural windows. Images stored on PACS. All CT scanners at this facility use dose modulation, iterative reconstruction, and/or weight based d osing when appropriate to reduce radiation dose to as low as reasonably achievable (ALARA). [facility]: Dose Right [facility]: CareDose [facility]: Dose Right [facility]: Teradose 4D [facility]: Smart [employer] RADIATION DOSE: CT Rad equipment meets quality standard of care and radiation dose reduction techniq ues were employed. CTDIvol: 53.2 mGy. DLP: 1044 mGy-cm.. LIMITATIONS: None. FINDINGS: VENTRICLES: Normal size and contour. CEREBRUM: No masses. No hemorrhage. No midline shift. Age appropriate white matter. No evidence for a cute infarction. CEREBELLUM: No masses. No hemorrhage. No alteration of density. No evidence for acute infarction. EXTRA-AXIAL SPACES: No fluid collections. ORBITS AND GLOBE: No intra- or extraconal masses. Normal contour of globe without masses. CALVARIUM: No fracture. PARANASAL SINUSES: No fluid or mucosal thickening. SOFT TISSUES: No mass or hematoma. OTHER: No other significant finding. IMPRESSION: NO ACUTE INTRACRANIAL FINDINGS. EVIDENCE OF ACUTE STROKE: NO. TECHNICAL DOCUMENTATION: JOB ID: [id number] [id number] Quality ID # [id number]: Final reports with documentation of one or more dose reduction techniques (e.g., Au tomated exposure control, adjustment of the mA and/or kV according to patient size, use of iterative reconstruction technique) 2010 [employer]- All Rights Reserved Reading location - IP/workstation name: [email or web address]
--- NOTE | 2019-04-16 13:53 | RADIOLOGY REPORT (SQ) ---
EXAM DESCRIPTION: CT CHEST WITHOUT; CT ABD/PELVIS NO ORAL OR IV COMPLETED DATE/TIME: 04/16/2019 12:20 pm; 04/16/2019 12:27 pm REASON FOR STUDY: unexplained weight loss COMPARISON: None. TECHNIQUE: CT scan of the chest performed without intravenous contrast using helical scanning techni que. Images reviewed with lung, soft tissue and bone windows. Reconstructed coronal and sagittal MPR images reviewed. All images stored on PACS. All CT scanners at this facility use dose modulation, iterative reconstruction, and/or weight based d osing when appropriate to reduce radiation dose to as low as reasonably achievable (ALARA). [facility]: Dose Right [facility]: CareDose [facility]: Dose Right [facility]: [employer] [facility]: [employer] RADIATION DOSE: CT Rad equipment meets quality standard of care and radiation dose reduction techniq ues were employed. CTDIvol: 14.4 mGy. DLP: 1015 mGy-cm. mGy. LIMITATIONS: None. FINDINGS: AXILLAE: No adenopathy. CHEST WALL: No masses. No subcutaneous air. LUNGS: No masses. No pneumothorax. No consolidation. Calcified granulomas in the left lower lobe. . PLEURA: No effusions. No calcifications. THYROID: No masses or significant asymmetry. HILAR AND MEDIASTINAL STRUCTURES: Small calcified nodes. AORTA AND GREAT VESSELS: No aneurysm. HEART: No pericardial effusion. HARDWARE AND LIFELINES: None. BONES: No acute finding. OTHER: No other significant finding. IMPRESSION: No acute findings. COMPARISON: 11/03/2017 TECHNIQUE: CT scan of the abdomen and pelvis performed without intravenous contrast and withoutoral contrast using helical scanning technique with dynamic intravenous contrast injection. Images review ed with lung, soft tissue and bone windows. Reconstructed coronal and sagittal MPR images reviewed. All images stored on PACS. All CT scanners at this facility use dose modulation, iterative reconstruction, and/or weight based d osing when appropriate to reduce radiation dose to as low as reasonably achievable (ALARA). [facility]: Dose Right [facility]: [employer] [facility]: Dose Right [facility]: [employer] 4D [facility]: [employer] RADIATION DOSE: CT Rad equipment meets quality standard of care and radiation dose reduction techniq ues were employed. CTDIvol: 14.4 mGy. DLP: 1015 mGy-cm.mGy. LIMITATIONS: None. FINDINGS: LIVER: Normal size. No masses. No dilated ducts. SPLEEN: Normal size. No focal lesions. PANCREAS: No masses. No significant calcifications. No adjacent inflammation or peripancreatic flui d collections. Pancreatic duct not dilated. GALLBLADDER: Multiple small calcified gallstones. No inflammatory changes to suggest cholecystitis. ADRENAL GLANDS: No significant masses or asymmetry. RIGHT KIDNEY AND URETER: No solid masses. Assessment limited by lack of IV contrast. No significant c alcification. No hydronephrosis or hydroureter. LEFT KIDNEY AND URETER: No solid masses. Assessment limited by lack of IV contrast. No significant ca lcification. No hydronephrosis or hydroureter. AORTA AND VESSELS: No aneurysm. RETROPERITONEUM: Similar small nodes. APPENDIX: Normal. LARGE AND SMALL BOWEL: No dilatation. Diverticulosis. No focal inflammatory changes. ABDOMINAL WALL: No hernia or masses. PERITONEAL CAVITY: No free air. No free fluid. No peritoneal implants or masses. PELVIS: No free fluid. Normal bladder. BONES: No acute findings. OTHER: No other significant finding. IMPRESSION: No acute findings. TECHNICAL DOCUMENTATION: JOB ID: [id number] [place]-72 Quality ID # [id number]: Final reports with documentation of one or more dose reduction techniques (e.g., Au tomated exposure control, adjustment of the mA and/or kV according to patient size, use of iterative reconstruction technique) 2010 [employer]- All Rights Reserved Reading location - IP/workstation name: [email or web address]
--- NOTE | 2019-04-16 13:53 | RADIOLOGY REPORT (SQ) ---
EXAM DESCRIPTION: CT CHEST WITHOUT; CT ABD/PELVIS NO ORAL OR IV COMPLETED DATE/TIME: 04/16/2019 12:20 pm; 04/16/2019 12:27 pm REASON FOR STUDY: unexplained weight loss COMPARISON: None. TECHNIQUE: CT scan of the chest performed without intravenous contrast using helical scanning techni que. Images reviewed with lung, soft tissue and bone windows. Reconstructed coronal and sagittal MPR images reviewed. All images stored on PACS. All CT scanners at this facility use dose modulation, iterative reconstruction, and/or weight based d osing when appropriate to reduce radiation dose to as low as reasonably achievable (ALARA). [facility]: Dose Right [facility]: CareDose [facility]: Dose Right [facility]: [employer] [facility]: [employer] RADIATION DOSE: CT Rad equipment meets quality standard of care and radiation dose reduction techniq ues were employed. CTDIvol: 14.4 mGy. DLP: 1015 mGy-cm. mGy. LIMITATIONS: None. FINDINGS: AXILLAE: No adenopathy. CHEST WALL: No masses. No subcutaneous air. LUNGS: No masses. No pneumothorax. No consolidation. Calcified granulomas in the left lower lobe. . PLEURA: No effusions. No calcifications. THYROID: No masses or significant asymmetry. HILAR AND MEDIASTINAL STRUCTURES: Small calcified nodes. AORTA AND GREAT VESSELS: No aneurysm. HEART: No pericardial effusion. HARDWARE AND LIFELINES: None. BONES: No acute finding. OTHER: No other significant finding. IMPRESSION: No acute findings. COMPARISON: 11/03/2017 TECHNIQUE: CT scan of the abdomen and pelvis performed without intravenous contrast and withoutoral contrast using helical scanning technique with dynamic intravenous contrast injection. Images review ed with lung, soft tissue and bone windows. Reconstructed coronal and sagittal MPR images reviewed. All images stored on PACS. All CT scanners at this facility use dose modulation, iterative reconstruction, and/or weight based d osing when appropriate to reduce radiation dose to as low as reasonably achievable (ALARA). [facility]: Dose Right [facility]: [employer] [facility]: Dose Right [facility]: [employer] [facility]: [employer] RADIATION DOSE: CT Rad equipment meets quality standard of care and radiation dose reduction techniq ues were employed. CTDIvol: 14.4 mGy. DLP: 1015 mGy-cm.mGy. LIMITATIONS: None. FINDINGS: LIVER: Normal size. No masses. No dilated ducts. SPLEEN: Normal size. No focal lesions. PANCREAS: No masses. No significant calcifications. No adjacent inflammation or peripancreatic flui d collections. Pancreatic duct not dilated. GALLBLADDER: Multiple small calcified gallstones. No inflammatory changes to suggest cholecystitis. ADRENAL GLANDS: No significant masses or asymmetry. RIGHT KIDNEY AND URETER: No solid masses. Assessment limited by lack of IV contrast. No significant c alcification. No hydronephrosis or hydroureter. LEFT KIDNEY AND URETER: No solid masses. Assessment limited by lack of IV contrast. No significant ca lcification. No hydronephrosis or hydroureter. AORTA AND VESSELS: No aneurysm. RETROPERITONEUM: Similar small nodes. APPENDIX: Normal. LARGE AND SMALL BOWEL: No dilatation. Diverticulosis. No focal inflammatory changes. ABDOMINAL WALL: No hernia or masses. PERITONEAL CAVITY: No free air. No free fluid. No peritoneal implants or masses. PELVIS: No free fluid. Normal bladder. BONES: No acute findings. OTHER: No other significant finding. IMPRESSION: No acute findings. TECHNICAL DOCUMENTATION: JOB ID: [id number] Quality ID # [id number]: Final reports with documentation of one or more dose reduction techniques (e.g., Au tomated exposure control, adjustment of the mA and/or kV according to patient size, use of iterative reconstruction technique) 2010 [employer]- All Rights Reserved Reading location - IP/workstation name: [facility] [employer]
--- NOTE | 2019-04-16 16:29 | ER Document Report ---
Entered by DOMINIC KAMARA SCRIBE 04/15/19 1504 Acting as scribe for:JASON CRAFT DO ED General - General Chief Complaint: Decreased Appetite Stated Complaint: WEAKNESS Time Seen by Provider: 04/15/19 14:21 Mode of Arrival: Ambulatory Information source: Patient Notes: Patient is a 68-year-old female that presents to the emergency department today with complaints of having "no appetite for 3 days". Family at bedside reports that the patient has not had anything to eat or drink other than x1 can of sanjiv yuri for the last x3 days. Patient states that she has only been nauseated once and she had one episode of vomiting x3 days ago but none since. Patient states she has had some diarrhea as well as generalized muscle cramps. Patient denies any pain, sick contacts, recent falls, or headache. Patient states that she does not want nausea medicine at this time. Family is worried about the patient's hydration status. TRAVEL OUTSIDE OF THE [place] IN LAST 30 DAYS: No - Related Data Allergies/Adverse Reactions: Penicillins Allergy (Mild, Verified 04/30/17 10:48) Past Medical History - General Information source: Patient - Social History Smoking Status: Former Smoker Cigarette use (# per day): No Frequency of alcohol use: None Drug Abuse: None Lives with: Family Family History: Arthritis, CAD, CVA, DM, Hyperlipidemia, Hypertension, Maligna ncy - Past Medical History Cardiac Medical History: Reports: Hx Hypercholesterolemia, Hx Hypertension Renal/ Medical History: Reports: Hx Renal Insufficiency Malignancy Medical History: Reports: Hx Brain Cancer Musculoskeletal Medical History: Reports Hx Arthritis, Reports Hx Gout Past Surgical History: Reports: Hx Appendectomy, Hx Neurologic Surgery - brain tumor removed - Immunizations Hx Diphtheria, Pertussis, Tetanus Vaccination: Yes Review of Systems - Review of Systems Constitutional: See HPI, Malaise, Other - lack of appetite EENT: No symptoms reported Cardiovascular: No symptoms reported Respiratory: No symptoms reported Gastrointestinal: See HPI, Diarrhea, Nausea, Vomiting Genitourinary: No symptoms reported Female Genitourinary: No symptoms reported Musculoskeletal: No symptoms reported Skin: No symptoms reported Hematologic/Lymphatic: No symptoms reported Neurological/Psychological: No symptoms reported -: Yes All other systems reviewed and negative Physical Exam - Vital signs Vitals: Resp Pulse Ox 10 L 100 04/15/19 13:57 04/15/19 13:57 Course - Re-evaluation Re-evalutation: 04/15/19 16:06 Called and spoke to Dr. Hernandez who agrees to admit the patient to his service Patient is a 68-year-old female who has not felt like eating or drinking over the last 3 days. She has an acute kidney injury. Patient has possibly had some vomiting 3 days ago. No nausea or vomiting here. No abdominal pain or tenderness. Patient is sipping on sanjiv yuri. She has a creatinine much elevated from her baseline and will require gentle fluid hydration and repeat blood work. She is discussed with her primary care doctor who will admit her to the [facility]. Patient and family are agreeable to this plan. Stable at the time of admission. Potassium within normal limits. Lungs clear. - Vital Signs Vital signs: Temp Pulse Resp BP Pulse Ox 98.7 F 71 16 132/60 H 100 04/16/19 15:20 04/16/19 15:20 04/16/19 15:20 04/16/19 15:20 04/16/19 15:20 - Laboratory Result Diagrams: 04/16/19 07:53 04/16/19 07:53 Laboratory results interpreted by me: 04/15/19 04/15/19 04/15/19 15:00 15:00 15:00 Hgb 11.4 L Hct 33.6 L RDW 14.8 H Carbon Dioxide 20 L BUN 35 H Creatinine 4.68 H Est GFR ( Amer) 11 L Est GFR (Non-Af Amer) 9 L Magnesium 2.4 H AST 42 H Creatine Kinase 426 H NT-Pro-B Natriuret Pep Total Protein 8.7 H Amylase 156 H Lipase 342.5 H TSH 04/15/19 04/15/19 15:00 15:00 Hgb Hct RDW Carbon Dioxide BUN Creatinine Est GFR ( Amer) Est GFR (Non-Af Amer) Magnesium AST Creatine Kinase NT-Pro-B Natriuret Pep 8120 H Total Protein Amylase Lipase TSH < 0.01 L - Diagnostic Test Radiology reviewed: Reports reviewed - EKG Interpretation by Nm EKG shows normal: Sinus rhythm Critical Care Note - Critical Care Note Total time excluding time spent on procedures (mins): 20 - Evaluation and management of acute kidney injury, consultation with admitting physiciancira patient and family Discharge - Discharge Clinical Impression: LAURO (acute kidney injury), Dehydration Condition: Stable Disposition: ADMITTED INPATIENT Admitting Provider: [facility] Admitted: DON Scribrosalino Attestation: 04/16/19 16:29 I personally performed the services described in the documentation, reviewed and edited the documentation which was dictated to the scribe in my presence, and it accurately records my words and actions. I personally performed the services described in the documentation, reviewed and edited the documentation which was dictated to the scribe in my presence, and it accurately records my words and actions.
--- NOTE | 2019-04-16 22:35 | PDOC CONSULTATION ---
Consultation Consult Date: 04/16/19 Provider Consulted: NICHOLAS GONZALES Consult reason:: weight loss and possible colonoscopy History of Present Illness Admission Date/PCP: 04/15/19 18:19 JUAN F MELVIN MD History of Present Illness: MARINA VELA is a 68 year old female with known anemia who was seen at a [employer] [facility] [employer] office and given an Iron infusion supposedly for an iron deficiency anemia about 1.5 weeks ago. After infusion developed anorexia and vomiting. Was brought by her nephew to ED with dehydration, Acute kidney failure and severe weakness. Her creat was 4 on admission and now to 2.0 with a baseline of 1.5. Patient has been drinking a lot and eating today. Had CT scan of abd/pelvis which was unremarkable. We are consulted for colonoscopy for weight loss. Patient claims she weighed 127 at the [employer] office and now is 131 lbs according to her nephew. She claims she had a colonoscopy 2 years ago. Past Medical History Cardiac Medical History: Reports: Hyperlipidema, Hypertension Pulmonary Medical History: Reports: Chronic Obstructive Pulmonary Disease (COPD) Endocrine Medical History: Reports: Other - Osteoporosis Renal/ Medical History: Reports: Chronic Kidney Disease Malignancy Medical History: Reports: Brain Cancer Musculoskeltal Medical History: Reports: Arthritis, Gout Psychiatric Medical History: Reports: Depression Past Surgical History Past Surgical History: Reports: Appendectomy Social History Lives with: Family Smoking Status: Former Smoker Cigarettes Packs Per Day: 0.2 Cigars Per Day: 0 Pipes Per Day: 0 Number of Years Smokin Last Time Smoked: 04/14/19 Frequency of Alcohol Use: None Hx Recreational Drug Use: No Drugs: None Hx Prescription Drug Abuse: No - Advance Directive Resuscitation Status: Full Code Family History Family History: Arthritis, CAD, CVA, DM, Hyperlipidemia, Hypertension, Malignancy Parental Family History Reviewed: Yes Children Family History Reviewed: No Sibling(s) Family History Reviewed.: No Medication/Allergy Home Medications: Aspirin [Aspirin 81 mg Chewable Tablet] 81 mg PO DAILY #30 03/24/13 Calcium Carb, Citrate/Vit D3 [Calcium + D3 ER Tablet] 1 tab PO BID 10/13/14 Losartan Potassium 100 mg PO DAILY 10/13/14 Levothyroxine Sodium [Synthroid 50 Mcg Tablet] 50 mcg PO DAILY 04/15/19 Allergies/Adverse Reactions: Penicillins Allergy (Mild, Verified 04/30/17 10:48) Review of Systems Constitutional: PRESENT: as per HPI Physical Exam Vital Signs: Temp Pulse Resp BP Pulse Ox 97.5 F 67 20 175/74 H 100 04/16/19 19:33 04/16/19 19:33 04/16/19 19:33 04/16/19 19:33 04/16/19 19:33 Intake & Output 04/15/19 04/16/19 04/17/19 06:59 06:59 06:59 Intake Total 2300 1737 Output Total 750 350 Balance 1550 1387 Weight 59.6 kg General appearance: PRESENT: no acute distress Head exam: PRESENT: atraumatic Eye exam: PRESENT: conjunctiva pink Mouth exam: PRESENT: moist Neck exam: PRESENT: full ROM Respiratory exam: PRESENT: clear to auscultation sharon Cardiovascular exam: PRESENT: RRR Pulses: PRESENT: normal radial pulses Vascular exam: PRESENT: normal capillary refill GI/Abdominal exam: PRESENT: soft - non tender Rectal exam: PRESENT: deferred Extremities exam: PRESENT: full ROM Musculoskeletal exam: PRESENT: ambulatory Neurological exam: PRESENT: alert, oriented to person, oriented to place, oriented to time, oriented to situation Psychiatric exam: PRESENT: appropriate affect Skin exam: PRESENT: normal color, warm Results Laboratory Results: 04/16/19 07:53 04/16/19 07:53 04/16/19 04/16/19 04/16/19 06:08 07:53 07:53 WBC 6.0 RBC 3.17 L Hgb 8.8 L D Hct 26.0 L MCV 82 MCH 27.9 MCHC 34.0 RDW 15.1 H Plt Count 251 Seg Neutrophils % Not Reportable Lymphocytes % Not Reportable Monocytes % Not Reportable Eosinophils % Not Reportable Basophils % Not Reportable Absolute Neutrophils Not Reportable Absolute Lymphocytes Not Reportable Absolute Monocytes Not Reportable Absolute Eosinophils Not Reportable Absolute Basophils Not Reportable Retic Count (auto) Absolute Retic Sodium 140.2 Potassium 3.6 Chloride 111 H Carbon Dioxide 19 L Anion Gap 10 BUN 30 H Creatinine 2.30 H Est GFR ( Amer) 25 L Est GFR (Non-Af Amer) 21 L Glucose 75 Calcium 8.1 L Phosphorus Iron TIBC % Saturation Ferritin Total Bilirubin 0.4 AST 30 Alkaline Phosphatase 78 Total Protein 6.8 Albumin 3.5 Triglycerides 133 Cholesterol 131.96 LDL Cholesterol Direct 87 VLDL Cholesterol 27.0 HDL Cholesterol 25 L Vitamin B12 Folate PTH Intact Urine Color STRAW Urine Appearance CLEAR Urine pH 6.0 Ur Specific [place] 1.004 Urine Protein NEGATIVE Urine Glucose (UA) NEGATIVE Urine Ketones NEGATIVE Urine Blood MODERATE H Urine Nitrite NEGATIVE Ur Leukocyte Esterase NEGATIVE Urine WBC (Auto) 1 Urine RBC (Auto) 1 Stool Occult Blood 04/16/19 04/16/19 04/16/19 07:53 07:53 07:53 WBC RBC Hgb Hct MCV MCH MCHC RDW Plt Count Seg Neutrophils % Lymphocytes % Monocytes % Eosinophils % Basophils % Absolute Neutrophils Absolute Lymphocytes Absolute Monocytes Absolute Eosinophils Absolute Basophils Retic Count (auto) 1.06 Absolute Retic 0.034 Sodium Potassium Chloride Carbon Dioxide Anion Gap BUN Creatinine Est GFR ( Amer) Est GFR (Non-Af Amer) Glucose Calcium Phosphorus Iron 172.2 H TIBC 220 L % Saturation 78 Ferritin 1120.00 H Total Bilirubin AST Alkaline Phosphatase Total Protein Albumin Triglycerides Cholesterol LDL Cholesterol Direct VLDL Cholesterol HDL Cholesterol Vitamin B12 370.0 Folate 7.32 PTH Intact 304.5 H Urine Color Urine Appearance Urine pH Ur Specific [place] Urine Protein Urine Glucose (UA) Urine Ketones Urine Blood Urine Nitrite Ur Leukocyte Esterase Urine WBC (Auto) Urine RBC (Auto) Stool Occult Blood 04/16/19 04/16/19 07:53 14:20 WBC RBC Hgb Hct MCV MCH MCHC RDW Plt Count Seg Neutrophils % Lymphocytes % Monocytes % Eosinophils % Basophils % Absolute Neutrophils Absolute Lymphocytes Absolute Monocytes Absolute Eosinophils Absolute Basophils Retic Count (auto) Absolute Retic Sodium Potassium Chloride Carbon Dioxide Anion Gap BUN Creatinine Est GFR ( Amer) Est GFR (Non-Af Amer) Glucose Calcium Phosphorus 1.2 L Iron TIBC % Saturation Ferritin Total Bilirubin AST Alkaline Phosphatase Total Protein Albumin Triglycerides Cholesterol LDL Cholesterol Direct VLDL Cholesterol HDL Cholesterol Vitamin B12 Folate PTH Intact Urine Color Urine Appearance Urine pH Ur Specific [place] Urine Protein Urine Glucose (UA) Urine Ketones Urine Blood Urine Nitrite Ur Leukocyte Esterase Urine WBC (Auto) Urine RBC (Auto) Stool Occult Blood NEGATIVE 04/15/19 04/15/19 04/15/19 15:00 15:00 15:00 Creatine Kinase 426 H CK-MB (CK-2) 2.72 Troponin I 0.159 NT-Pro-B Natriuret Pep 8120 H 04/15/19 04/15/19 04/16/19 20:05 20:05 02:17 Creatine Kinase 344 H 363 H CK-MB (CK-2) 2.64 Troponin I 0.112 NT-Pro-B Natriuret Pep 04/16/19 04/16/19 04/16/19 02:17 07:53 07:53 Creatine Kinase 402 H CK-MB (CK-2) 2.71 2.74 Troponin I 0.078 0.076 NT-Pro-B Natriuret Pep Impressions: Chest X-Ray 04/15/19 00:00 IMPRESSION: Mild chronic lung changes with no acute cardiopulmonary findings. Renal Ultrasound 04/15/19 00:00 IMPRESSION: No hydronephrosis. KUB X-Ray 04/15/19 14:41 IMPRESSION: NO RADIOGRAPHIC EVIDENCE FOR ACUTE ABDOMINAL DISEASE. Abdomen/Pelvis CT 04/16/19 00:00 IMPRESSION: No acute findings. IMPRESSION: No acute findings. Chest CT 04/16/19 00:00 IMPRESSION: No acute findings. IMPRESSION: No acute findings. Head CT 04/16/19 00:00 IMPRESSION: NO ACUTE INTRACRANIAL FINDINGS. EVIDENCE OF ACUTE STROKE: NO. Assessment & Plan - Diagnosis (1) LAURO (acute kidney injury) Is this a current diagnosis for this admission?: Yes (2) Anemia in chronic kidney disease Qualifiers: Chronic kidney disease stage: stage 3 (moderate) Qualified Code(s): N18.3 - Chronic kidney disease, stage 3 (moderate); D63.1 - Anemia in chronic kidney disease Is this a current diagnosis for this admission?: Yes (4) Elevated troponin Is this a current diagnosis for this admission?: Yes (5) Secondary hyperparathyroidism (of renal origin) Is this a current diagnosis for this admission?: Yes (6) Weight loss Is this a current diagnosis for this admission?: Yes - Time Time Spent: 30 to 50 Minutes - Inpatient Certification Medical Necessity: Need For IV Fluids - Plan Summary Plan Summary: Patient kidney function is still recovering. She appears to be recovering well from her anorexia and severe dehydration. No emergent need for colonoscopy at this time. Can schedule on day of discharge or on OPD basis. Will need a bowel prep.
[2019-04-17 05:34] LABS: ABSOLUTE EOSINOPHILS # (AUTO) 0.3 10^3/uL (0.0-0.6); ABSOLUTE LYMPHOCYTES (AUTO) 3.1 10^3/uL (0.5-4.7); ABSOLUTE MONOCYTES (AUTO) 0.4 10^3/uL (0.1-1.4); ABSOLUTE NEUT (AUTO) 2.6 10^3/uL (1.7-8.2); BASOPHILS % (AUTO) 0.6 % (0-2); EOSINOPHILS % (AUTO) 4.8 % (0-6); HEMOGLOBIN 8.6 g/dL (12.0-15.5); MEAN CORPUSCULAR HEMOGLOBIN 28.3 pg (27.0-33.4); MEAN CORPUSCULAR HGB CONC 34.2 g/dL (32.0-36.0); MEAN CORPUSCULAR VOLUME 83 fl (80-97); MONOCYTES % (AUTO) 6.9 % (3-13); PLATELET COUNT 235 10^3/uL (150-450); RED BLOOD COUNT 3.03 10^6/uL (3.72-5.28); RED CELL DISTRIBUTION WIDTH 15.3 % (11.5-14.0); SEGMENTED NEUTROPHILS % (AUTO) 40.7 % (42-78); TOTAL CELLS COUNTED % (AUTO) 100 %; WHITE BLOOD COUNT 6.5 10^3/uL (4.0-10.5)
[2019-04-17 05:54] LABS: ALBUMIN 3.5 g/dL (3.5-5.0); ALKALINE PHOSPHATASE 85 U/L (38-126); ANION GAP 8 (5-19); ASPARTATE AMINO TRANSFERASE 32 U/L (14-36); BILIRUBIN,DIRECT 0.2 mg/dL (0.0-0.4); BILIRUBIN,TOTAL 0.3 mg/dL (0.2-1.3); BLOOD UREA NITROGEN 19 mg/dL (7-20); CARBON DIOXIDE 19 mmol/L (22-30); CHLORIDE 113 mmol/L (98-107); GLUCOSE 90 mg/dL (75-110); POTASSIUM 3.7 mmol/L (3.6-5.0); TOTAL PROTEIN 6.6 g/dL (6.3-8.2)
[2019-04-17] MEDS: HEPARIN SOD (PORCINE) 5,000 UNIT/ML 1 ML VIAL SUBCUT SCH (06:19)
[2019-04-17] MEDS: CALCITRIOL 0.25 MCG CAPSULE PO SCH (09:54)
[2019-04-17 11:04] VITALS: BP 116/58
--- NOTE | 2019-04-17 12:34 | PDOC DISCHARGE SUMMARY ---
General - Admit/Disc Date/PCP Admission Date/Primary Care Provider: 04/15/19 18:19 JUAN F MELVIN MD Discharge Date: 04/17/19 - Discharge Diagnosis (1) LAURO (acute kidney injury) Is this a current diagnosis for this admission?: Yes (2) Secondary hyperparathyroidism (of renal origin) Is this a current diagnosis for this admission?: Yes (3) Weight loss Is this a current diagnosis for this admission?: Yes (4) Elevated troponin Is this a current diagnosis for this admission?: Yes (5) Anemia in chronic kidney disease Is this a current diagnosis for this admission?: Yes - Additional Information Resuscitation Status: Full Code Discharge Diet: Regular Discharge Activity: Activity As Tolerated Prescriptions: Calcitriol [Rocaltrol 0.25 mcg Capsule] 0.25 mcg PO DAILY #90 capsule Home Medications: Aspirin [Aspirin 81 mg Chewable Tablet] 81 mg PO DAILY #30 03/24/13 Calcium Carb, Citrate/Vit D3 [Calcium + D3 ER Tablet] 1 tab PO BID 10/13/14 Losartan Potassium 100 mg PO DAILY 10/13/14 Levothyroxine Sodium [Synthroid 0.05 mg Tablet] 50 mcg PO DAILY 04/15/19 Acetaminophen [Tylenol 325 mg Tablet] 325 mg PO Q4HP PRN tablet 04/17/19 Calcitriol [Rocaltrol 0.25 mcg Capsule] 0.25 mcg PO DAILY #90 capsule 04/17/19 History of Present Illness History of Present Illness: MARINA VELA is a 68 year old female, she was brought to the emergency room by her nephew for evaluation of generalized body weakness, decreased intake, dehydration. She has a history of underlying chronic kidney disease, stage III, she has anemia, she was evaluated in the office for the anemia the iron indices, B12, reticulocyte count came back normal, I felt she needed a bone marrow biopsy. I ordered bone marrow biopsy outpatient but this was not done by the interventional radiologist, this suggests that patient should be referred to a optical instrument inspector. She was referred to the optical instrument inspector, she went through another set of iron studies she was found to be iron deficient from their evaluation I did not demonstrate iron deficiency from the evaluation done in the office. She said she was given iron infusion, since she received iron infusion she became anorexic, she has no appetite and she has not been eating or drinking since Mayda of last week. The nephew was concerned she brought out of the ER for evaluation, the serum creatinine that was done in the ER was 4.68, her baseline creatinine is about 1.5.. Kidney ultrasound was done there was no hydronephro sis it demonstrated atrophic right kidney measures 6.8 cm, the left kidney measures 9.2 cm there was no hydronephrosis no mass no suspicious lesions. She was also found to have elevated serum troponin but there is no EKG changes, the BNP was elevated, the worsening azotemia is most likely prerenal and not necessarily from worsening kidney function. There is also evidence of secondary hyperparathyroidism due to kidney disease. The anemia is probably anemia of chronic kidney disease and not necessarily iron deficiency anemia Hospital Course Hospital Course: Patient was admitted for the management of dehydration with acute kidney injury, on admission the serum creatinine was 4 with hydration this was normalized. She has underlying CKD stage III kidney ultrasound was done that demonstrated atrophic right kidney. She was also found to have secondary hyperparathyroidism, she was started on calcitriol on this admission. CT scan of the chest, abdomen and pelvis was done without contrast there was no mass lesion demonstrated the CAT scan was done partly for evaluation of weight loss. Consultation was requested from surgery for colonoscopy but it was felt that this could be done outpatient, patient stated that she had colonoscopy done 2 ye ars ago in this hospital but I could not retrieve records from [facility]. She was craving cigarettes yesterday she was wanting to go out to smoke, we offered her nicotine patch but she refused. She was advised that this is a tobacco free facility and cannot smoke in this hospital because she felt much better appetite improved, she also received a dose of Procrit Physical Exam Vital Signs: Temp Pulse Resp BP Pulse Ox 98.9 F 62 16 116/58 L 100 04/17/19 10:59 04/17/19 10:59 04/17/19 10:59 04/17/19 10:59 04/17/19 10:59 Intake & Output 04/16/19 04/17/19 04/18/19 06:59 06:59 06:59 Intake Total 2300 2737 Output Total 750 1350 Balance 1550 1387 Weight 59.6 kg 60.8 kg General appearance: PRESENT: no acute distress, well-developed, well-nourished Head exam: PRESENT: atraumatic, normocephalic Eye exam: PRESENT: conjunctiva pink, EOMI, PERRLA Ear exam: PRESENT: normal external ear exam Mouth exam: PRESENT: moist, tongue midline Neck exam: PRESENT: full ROM Respiratory exam: PRESENT: clear to auscultation sharon Cardiovascular exam: PRESENT: RRR, +S1, +S2 Vascular exam: PRESENT: normal capillary refill GI/Abdominal exam: PRESENT: normal bowel sounds, soft Rectal exam: PRESENT: deferred Neurological exam: PRESENT: alert, CN II-XII grossly intact Psychiatric exam: PRESENT: appropriate affect, normal mood Skin exam: PRESENT: dry, intact, warm Results Laboratory Results: 04/17/19 04:55 04/17/19 04:55 04/16/19 04/17/19 04/17/19 14:20 04:55 04:55 WBC 6.5 RBC 3.03 L Hgb 8.6 L Hct 25.0 L MCV 83 MCH 28.3 MCHC 34.2 RDW 15.3 H Plt Count 235 Seg Neutrophils % 40.7 L Lymphocytes % 47.0 H Monocytes % 6.9 Eosinophils % 4.8 Basophils % 0.6 Absolute Neutrophils 2.6 Absolute Lymphocytes 3.1 Absolute Monocytes 0.4 Absolute Eosinophils 0.3 Absolute Basophils 0.0 Sodium 140.3 Potassium 3.7 Chloride 113 H Carbon Dioxide 19 L Anion Gap 8 BUN 19 Creatinine 1.24 Est GFR ( Amer) 52 L Est GFR (Non-Af Amer) 43 L Glucose 90 Calcium 8.0 L Total Bilirubin 0.3 AST 32 Alkaline Phosphatase 85 Total Protein 6.6 Albumin 3.5 Stool Occult Blood NEGATIVE 04/15/19 04/15/19 04/15/19 15:00 15:00 15:00 Creatine Kinase 426 H CK-MB (CK-2) 2.72 Troponin I 0.159 NT-Pro-B Natriuret Pep 8120 H 04/15/19 04/15/19 04/16/19 20:05 20:05 02:17 Creatine Kinase 344 H 363 H CK-MB (CK-2) 2.64 Troponin I 0.112 NT-Pro-B Natriuret Pep 04/16/19 04/16/19 04/16/19 02:17 07:53 07:53 Creatine Kinase 402 H CK-MB (CK-2) 2.71 2.74 Troponin I 0.078 0.076 NT-Pro-B Natriuret Pep Impressions: Chest X-Ray 04/15/19 00:00 IMPRESSION: Mild chronic lung changes with no acute cardiopulmonary findings. Renal Ultrasound 04/15/19 00:00 IMPRESSION: No hydronephrosis. KUB X-Ray 04/15/19 14:41 IMPRESSION: NO RADIOGRAPHIC EVIDENCE FOR ACUTE ABDOMINAL DISEASE. Abdomen/Pelvis CT 04/16/19 00:00 IMPRESSION: No acute findings. IMPRESSION: No acute findings. Chest CT 04/16/19 00:00 IMPRESSION: No acute findings. IMPRESSION: No acute findings. Head CT 04/16/19 00:00 IMPRESSION: NO ACUTE INTRACRANIAL FINDINGS. EVIDENCE OF ACUTE STROKE: NO. Qualifiers - * PATIENT BEING DISCHARGED WITH ANY OF THE FOLLOWING DIAGNOSIS: No VTE patient discharged on overlapping Therapy?: No Reason(s) for not prescribing Overlap Therapy:: Not indicated Stroke Pt being discharged on Anti-thrombolytic therapy?: No Reason(s) for not prescribing Anti-thrombolytic therapy:: Not indicated Stroke Pt being discharged on Anti-coagulation therapy?: No Reason(s) for not prescribing Anti-coagulation therapy:: Not indicated Stroke Pt being discharged on Statins?: No Reason(s) for not prescribing Statins therapy:: Not indicated TX Pt being discharged on Aspirin therapy?: No Reason(s) for not prescribing Aspirin therapy:: Not indicated TX Pt being discharged on Statins?: No Reason(s) for not prescribing Statin therapy:: Not indicated TX Pt discharged ACEI/ARBS?: No Reason(s) for not prescribing ACEI/ARBS:: Not indicated Acute Heart Failure - Is this a Heart Failure Patient?: No 3. Anticoagulant therapy for permanect/persistent/paraoxysmal Afib or Aflutter: Yes
== END 2019-04-17 11:36 | disposition home or self-care (01) | DRG 684 ==
LOC: ER 13:46 → EH 18:19 → 3N 22:10
PROVIDERS: ADMIT Internal Medicine; ATTEND Internal Medicine
DX: N17.9 Acute kidney failure, unspecified (principal); E86.0 Dehydration; I12.9 Hypertensive chronic kidney disease with stage 1 through stage 4 chronic kidney disease, or unspecified chronic kidney disease; N18.3 Chronic kidney disease, stage 3 (moderate); M19.90 Unspecified osteoarthritis, unspecified site; D63.1 Anemia in chronic kidney disease; N25.81 Secondary hyperparathyroidism of renal origin; E78.5 Hyperlipidemia, unspecified; J44.9 Chronic obstructive pulmonary disease, unspecified; M81.0 Age-related osteoporosis without current pathological fracture; Z88.0 Allergy status to penicillin; F32.9 Major depressive disorder, single episode, unspecified; M1A.9XX0 Chronic gout, unspecified, without tophus (tophi); F17.210 Nicotine dependence, cigarettes, uncomplicated; R79.89 Other specified abnormal findings of blood chemistry; R63.4 Abnormal weight loss; Z90.49 Acquired absence of other specified parts of digestive tract; Z82.3 Family history of stroke; Z82.49 Family history of ischemic heart disease and other diseases of the circulatory system
CPT/HCPCS: 36415; 70450; 71045; 71250; 74018; 74176; 76770; 80048; 80053; 80061; 80076; 80307; 81001; 82140; 82150; 82272; 82550; 82553; 82607; 82728; 82746; 83036; 83540; 83550; 83605; 83690; 83735; 83880; 83970; 84100; 84439; 84443; 84484; 85025; 85045; 85610; 85730; 87040; 87086; 93005; 93010; 96360; 96361; 96372; 99285; A9270-GY; J1644; J7030; Q5106